=== PATIENT | female | born 1985 | race Caucasian/White ===

== ENCOUNTER 2023-05-02 16:23 | Emergency (ER) | payer BC ==
[~2023-05-02] VITALS: Ht 170.2 cm; Wt 77.1 kg
[~2023-05-02 16:23] MED LIST: AVIANE PO; SPRINTEC 2828 DAY PO
[2023-05-02 16:29] VITALS: BP 133/92
[2023-05-02 16:45] VITALS: BP 127/87
[2023-05-02 17:00] VITALS: BP 127/89
[2023-05-02] MEDS ORDERED: BACTRIM DS1 TAB PO ×2 (17:09→17:13)
[2023-05-02 17:15] VITALS: BP 126/98
[2023-05-02 17:23] VITALS: BP 126/98
== END 2023-05-02 17:28 | disposition home or self-care (01) | DRG 603 ==
LOC: ED 16:23
PROC: 0H9GXZX Drainage of Left Hand Skin, External Approach, Diagnostic (ICD-10-PCS; principal; 2023-05-02)
DX: L03.012 Cellulitis of left finger (principal)